=== PATIENT | female | born 1970 | race Caucasian/White ===

== ENCOUNTER 2016-09-13 16:15 | Emergency (ER) | payer BC ==
[2016-09-13 18:09] VITALS: BP 132/84
[2016-09-13] MEDS ORDERED: Clarithromycin TAB* 500 MG PO ONE (18:20)
--- NOTE | 2016-09-13 18:31 | UC ---
Throat Pain/Nasal Natan HPI - HPI Summary HPI Summary: pt c/o URI symptoms for 1 months. has history of sinusitis, sinus surgery. Reports she has been taking OTC medications with no improvement over past 2 weeks. Pt reports feeling fatigued, headache, sinus pressure and fullness X 1 month - History of Current Complaint Chief Complaint: UCGeneralIllness Stated Complaint: CONGESTION Time Seen by Provider: 09/13/16 17:58 Hx Obtained From: Patient Hx Last Menstrual Period: 08/30/16 ?: No Onset/Duration: Gradual Onset, Lasting Weeks - 5 weeks Severity: Moderate Associated Signs & Symptoms: Positive: Sinus Discomfort, Other - nasal congestion Related History: Seasonal Allergies - Allergies/Home Medications Allergies/Adverse Reactions: Allergies Allergy/AdvReac Type Severity Reaction Status Date / Time Penicillins Allergy Rash Verified 09/13/16 18:09 Sulfa Antibiotics Allergy Rash Verified 09/13/16 18:09 PMH/Surg Hx/FS Hx/Imm Hx Previously Healthy: Yes Endocrine History Of: Denies: Diabetes, Thyroid Disease Cardiovascular History Of: Reports: Cardiac Disorders - mitral valve prolapse Denies: Hypertension Respiratory History Of: Reports: Bronchitis Denies: COPD, Asthma GI/ History Of: Denies: Ulcer - Surgical History Surgical History: Yes Surgery Procedure, Year, and Place: sinus 20yrs ago, Shoulder surgery (left) 2013 - Family History Known Family History: Positive: Cardiac Disease - Social History Lives: With Family Alcohol Use: Rare Substance Use Type: None Smoking Status (MU): Never Smoked Tobacco - Immunization History Most Recent Influenza Vaccination: current Review of Systems Constitutional: Fatigue Skin: Negative Eyes: Negative ENT: Other - nasal congestion, sinus pressure Respiratory: Cough Cardiovascular: Negative Gastrointestinal: Negative Genitourinary: Negative Motor: Negative Neurovascular: Negative Musculoskeletal: Negative Neurological: Headache Psychological: Negative All Other Systems Reviewed And Are Negative: Yes Physical Exam Triage Information Reviewed: Yes Appearance: Ill-Appearing Vital Signs: Initial Vital Signs Temp 98.4 F 09/13/16 18:05 Pulse 81 09/13/16 18:05 Resp 16 09/13/16 18:05 BP 132/84 09/13/16 18:05 Pulse Ox 100 09/13/16 18:05 Eye Exam: Normal ENT Exam: Other ENT: Positive: Nasal congestion, Other: - PND, maxillary sinus tenderness Neck exam: Normal Respiratory Exam: Normal Cardiovascular Exam: Normal Musculoskeletal Exam: Normal Neurological Exam: Normal Psychological Exam: Normal Skin Exam: Normal Throat Pain/Nasal Course/Dx - Differential Dx/Diagnosis Differential Diagnosis/HQI/PQRI: Influenza, Sinusitis, URI Provider Diagnoses: sinusitis Discharge - Discharge Plan Condition: Stable Disposition: HOME Prescriptions: Clarithromycin TAB* [Biaxin TAB*] 500 mg PO BID #14 tab Pseudoephedrine-Guaifenesin [Mucinex D 60-600 mg] 1 tab PO DAILY #10 tab Patient Education Materials: Sinusitis (ED) Referrals: Tyler Norton MD [Primary Care Provider] -
== END 2016-09-13 18:33 | disposition home or self-care (01) ==
LOC: UCCORT 16:15
DX: J32.9 Chronic sinusitis, unspecified (principal); Z88.0 Allergy status to penicillin; Z88.2 Allergy status to sulfonamides
CPT/HCPCS: 99212; A9270-GY; G0463